=== PATIENT | male | born 1990 ===

== ENCOUNTER 2016-10-10 00:08 | Emergency (ER) | payer SELFPAY ==
[2016-10-10 00:12] VITALS: BP 111/65; PULSE 90; RESP 20; TEMP 98; O2SAT 98
--- NOTE | 2016-10-10 00:57 | C.PDOC ---
Time Seen by Provider: 10/10/16 00:18 Chief Complaint (Nursing): Cough, Cold, Congestion Past Medical History Vital Signs: Last Vital Signs Temp 98 F 10/10/16 00:10 Pulse 90 10/10/16 00:10 Resp 20 10/10/16 00:10 BP 111/65 10/10/16 00:10 Pulse Ox 98 10/10/16 00:10 - Social History Hx Tobacco Use: No Hx Alcohol Use: No Hx Substance Use: No - Immunization History Hx Tetanus Toxoid Vaccination: No Hx Influenza Vaccination: No Hx Pneumococcal Vaccination: No ED Course And Treatment O2 Sat by Pulse Oximetry: 98 Disposition Counseled Patient/Family Regarding: Diagnosis, Need For Followup - Disposition Disposition: HOME/ ROUTINE Disposition Time: 00:55 Condition: STABLE Additional Instructions: [facility] clin[facility] Regresa si peor Prescriptions: Cetirizine HCl [Zyrtec] 10 mg PO DAILY #20 capsule Ibuprofen [Motrin] 600 mg PO Q6H #20 tab Mometasone Furoate [Nasonex] 2 spray NS DAILY #1 bottle Instructions: Allergic Rhinitis (ED) - Clinical Impression Clinical Impression: Allergic rhinitis
--- NOTE | 2016-10-10 01:00 | C.PDOC ---
History Of Present Illness 26 y/o male presents to the ED with complaints of nasal congestion, frontal headache and sore throat x2 days. Pt hasn't taken any medications. Denies fever , chills, SOB or any other complaints. Time Seen by Provider: 10/10/16 00:18 Chief Complaint (Nursing): Cough, Cold, Congestion History Per: Patient History/Exam Limitations: no limitations Onset/Duration Of Symptoms: Days Current Symptoms Are (Timing): Still Present Location Of Pain: Throat, Headache Sick Contacts (Context): None Associated Symptoms: Sore Throat, Nasal Congestion. denies: Fever, Chills Severity: Mild Recent travel outside of the [place]: No Past Medical History Reviewed: Historical Data, Nursing Documentation, Vital Signs Vital Signs: Last Vital Signs Temp 98 F 10/10/16 00:10 Pulse 90 10/10/16 00:10 Resp 20 10/10/16 00:10 BP 111/65 10/10/16 00:10 Pulse Ox 98 10/10/16 01:01 Family History: States: Unknown Family Hx - Social History Hx Tobacco Use: No Hx Alcohol Use: No Hx Substance Use: No - Immunization History Hx Tetanus Toxoid Vaccination: No Hx Influenza Vaccination: No Hx Pneumococcal Vaccination: No Review Of Systems Except As Marked, All Systems Reviewed And Found Negative. Constitutional: Negative for: Fever, Chills ENT: Positive for: Nose Congestion, Throat Pain Respiratory: Negative for: Shortness of Breath Neurological: Positive for: Headache Physical Exam - Physical Exam Appears: Non-toxic, No Acute Distress Skin: Warm, Dry, No Rash Head: Atraumatic, Normacephalic, Tenderness (frontal sinus) Ear(s): Bilateral: Normal Nose: Other (enlarged nasal turbinates) Oral Mucosa: Moist Throat: Normal, No Erythema, No Exudate Neck: Normal, Normal ROM, Supple Chest: Symmetrical Cardiovascular: Rhythm Regular, No Murmur Respiratory: Normal Breath Sounds, No Rales, No Wheezing Extremity: Bilateral: Atraumatic Neurological/Psych: Oriented x3, Normal Speech ED Course And Treatment O2 Sat by Pulse Oximetry: 98 (room air) Pulse Ox Interpretation: Normal Disposition - Disposition Disposition: HOME/ ROUTINE Disposition Time: 00:45 Condition: STABLE Additional Instructions: [facility] Sigue [facility] clinica Regresa si peor Prescriptions: Cetirizine HCl [Zyrtec] 10 mg PO DAILY #20 capsule Ibuprofen [Motrin] 600 mg PO Q6H #20 tab Mometasone Furoate [Nasonex] 2 spray NS DAILY #1 bottle Instructions: Allergic Rhinitis (ED) - Clinical Impression Clinical Impression: Allergic rhinitis - 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 - Scribe Statement The provider has reviewed the documentation as recorded by the Scribe Otoniel ann All medical record entries made by the Lauraibregis were at my direction and personally dictated by me. I have reviewed the chart and agree that the record accurately reflects my personal performance of the history, physical exam, medical decision making, and the department course for this patient. I have also personally directed, reviewed, and agree with the discharge instructions and disposition.
== END 2016-10-10 01:03 | disposition home or self-care (01) ==
LOC: C.ER 00:08
DX: J30.9 Allergic rhinitis, unspecified (principal)